=== PATIENT | male | born 1950 | race Caucasian/White ===

== ENCOUNTER → 2024-01-14 14:05 | Outpatient (REF) | payer OTHER, SELFPAY | LOC: PAVMRI 14:05 | PROVIDERS: ATTENDING PHYSICIAN Physician Assistant | DX: M54.14 Radiculopathy, thoracic region (principal); M54.9 Dorsalgia, unspecified; Z98.890 Other specified postprocedural states | CPT/HCPCS: 72157; A9575 ==

== ENCOUNTER → 2024-01-18 13:55 | Outpatient (REF) | payer OTHER, SELFPAY | LOC: PAVMRI 13:55 | PROVIDERS: ATTENDING PHYSICIAN Physician Assistant | DX: M54.16 Radiculopathy, lumbar region (principal); Z98.890 Other specified postprocedural states | CPT/HCPCS: 72158; A9575 ==

== ENCOUNTER → 2024-06-15 14:19 | Outpatient (REF) | payer OTHER, SELFPAY | LOC: RCS 14:19 | PROVIDERS: ATTENDING PHYSICIAN Internal Medicine Geriatric Medicine | DX: E11.9 Type 2 diabetes mellitus without complications (principal); E78.2 Mixed hyperlipidemia; M54.16 Radiculopathy, lumbar region; J44.9 Chronic obstructive pulmonary disease, unspecified; F33.9 Major depressive disorder, recurrent, unspecified; R41.3 Other amnesia; Z13.31 Encounter for screening for depression; M35.3 Polymyalgia rheumatica; K29.70 Gastritis, unspecified, without bleeding; E55.9 Vitamin D deficiency, unspecified; Z13.89 Encounter for screening for other disorder; R00.2 Palpitations; G93.5 Compression of brain; G43.009 Migraine without aura, not intractable, without status migrainosus; Z23 Encounter for immunization; R06.09 Other forms of dyspnea; N45.1 Epididymitis | CPT/HCPCS: 93017; 93350 ==

== ENCOUNTER 2024-06-27 06:27 | Day surgery (SDC) | payer OTHER, SELFPAY ==
[2024-06-27] VITALS (9 sets, daily range): BP systolic 146–176; BP diastolic 63–92; BMI 25.9
[2024-06-27] MEDS: LOW STRENGTH ASPIRIN 81 MG PO (07:15)
[2024-06-27 07:16] LABS: Glucose - Point of Care 117 mg/dl (70-99)
[2024-06-27] MEDS: NSS 227 ML IV (07:24)
[2024-06-27] MEDS: NSS 1000 IV (09:27)
--- NOTE | 2024-06-27 15:40 | ITS.CL.CATH ---
Certified Optician - Catheterization
Cardiac Catheterization
Procedure Report:
LEFT HEART CATHETERIZATION
Date of Procedure: June 27, 2024
Referring: Dr. Liza Amor
PROCEDURES:
1. Left heart catheterization with coronary and single-plane left ventriculography
INDICATION: This is a 73-year-old gentleman with a past medical history notable for diabetes and heavy tobacco use smoking 2 packs/day. He stopped smoking about 6 years ago. He has experienced some chest discomfort and chronic shortness of breath.
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 A recent stress study was notable for mildly reduced EF and possible anteroseptal ischemia for which he is referred for coronary angiography. He does have a
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
ACCESS: Right radial artery, 6 [place] sheath
HEMODYNAMICS : (mmHg)
AO (s/d) : 163/84, 117
LV (s/d) : 173/3
LVEDP : 15
CORONARY FINDINGS
DOMINANCE: Right
LEFT MAIN: Normal
LEFT ANTERIOR DESCENDING: The LAD is a large-caliber vessel that arises normally from the left main and runs in the anterior interventricular groove. The LAD reaches and wraps around the apex. Only minor irregularities are noted.
RAMUS: Medium caliber ramus. The mid portion of the ramus has a 60% mid stenosis
CIRCUMFLEX: The circumflex is a moderate caliber nondominant vessel supplying a single sizable obtuse marginal branch. The circumflex and obtuse marginal branch are widely patent
RIGHT CORONARY ARTERY: The right coronary artery is a large-caliber dominant vessel that is angiographically normal
VENTRICULOGRAPHY: Left ventriculography was performed in an [place] projection. There is mild global hypokinesis with a visually estimated ejection fraction of 40%
RADIATION SUMMARY: Fluoro Time (min): 5.1, Dose (mGy): 397, DAP (Gy.cm2) : 32.8
Closure Device: TR band
CONCLUSIONS
1. Nonobstructive coronary disease
2. Mildly reduced left ventricular systolic function
RECOMMENDATIONS
1. Continue medical therapy for nonischemic cardiomyopathy with goal-directed guideline medical therapy
Copy to: Dr. Liza Amor
== END 2024-06-27 11:55 | disposition home or self-care (01) ==
LOC: CATH 06:27
PROVIDERS: ATTENDING PHYSICIAN Internal Medicine Interventional Cardiology; FAMILY PHYSICIAN Internal Medicine Geriatric Medicine; OTHER PHYSICIAN Internal Medicine Cardiovascular Disease
DX: I25.10 Atherosclerotic heart disease of native coronary artery without angina pectoris (principal); R07.89 Other chest pain; R06.02 Shortness of breath; E78.2 Mixed hyperlipidemia; E11.9 Type 2 diabetes mellitus without complications; Z87.891 Personal history of nicotine dependence; Z79.82 Long term (current) use of aspirin; Z79.84 Long term (current) use of oral hypoglycemic drugs
CPT/HCPCS: 82962; 93458; C1894; Q9967

== ENCOUNTER → 2024-09-15 15:33 | Outpatient (REF) | payer OTHER, SELFPAY | LOC: RCS 15:33 | PROVIDERS: ATTENDING PHYSICIAN Physician Assistant Medical; FAMILY PHYSICIAN Internal Medicine Geriatric Medicine | DX: I35.0 Nonrheumatic aortic (valve) stenosis (principal); I42.8 Other cardiomyopathies | CPT/HCPCS: 93306 ==